=== PATIENT | female | born 1980 | race African-American/Black ===

== ENCOUNTER 2019-09-07 04:41 | Emergency (ER) | payer SELFPAY ==
[~2019-09-07] VITALS: Ht 165.1 cm; Wt 59.0 kg
[2019-09-07 05:00] VITALS: BP 177/88
[2019-09-07 06:47] LABS: *AMPHETAMINES SCREEN URINE NEGATIVE (NEGATIVE); *BARBITURATES SCREEN URINE NEGATIVE (NEGATIVE)
[2019-09-07 06:48] LABS: *BENZODIAZEPINES SCREEN URINE NEGATIVE (NEGATIVE); *COCAINE SCREEN URINE NEGATIVE (NEGATIVE); CANNABINOID URINE SCREEN NEGATIVE (NEGATIVE); METHADONE URINE SCREEN NEGATIVE (NEGATIVE); OPIATES URINE SCREEN NEGATIVE (NEGATIVE); PHENCYCLIDINE URINE SCREEN NEGATIVE (NEGATIVE)
== END 2019-09-07 08:09 | disposition home or self-care (01) ==
LOC: ER 04:41
DX: Z00.00 Encounter for general adult medical examination without abnormal findings (principal); F10.10 Alcohol abuse, uncomplicated; Y90.7 Blood alcohol level of 200-239 mg/100 ml
CPT/HCPCS: 36415; 80305; 80320; 99283; G0480